=== PATIENT | female | born 1970 | race Asian ===

== ENCOUNTER 2018-11-25 14:16 | Inpatient (IN) | payer MEDICARE, MEDICAID ==
[~2018-11-25] VITALS: Ht 175.3 cm; Wt 61.0 kg
[2018-11-25] MEDS ORDERED: HALOPERIDOL 5 MG TABLET PO PRN (20:15)
[2018-11-25 20:23] VITALS: BP 126/83
[2018-11-25 21:10] VITALS: BP 123/78
[2018-11-25] MEDS: LORazepam 2 MG TABLET PO PRN (21:21)
[2018-11-25] MEDS ORDERED: NICOTINE 14 MG/24 HOUR PATCH TD PRN (22:00)
[2018-11-25] MEDS ORDERED: PETROLATUM,WHITE 71 GM JELLY TP PRN (22:00)
[2018-11-25] MEDS ORDERED: GuaiFENesin/D-METHORPHAN [SUGAR-FREE] 200-20MG/10 ML SYRUP UDCUP PO PRN (22:00)
[2018-11-25] MEDS ORDERED: DOCUSATE SODIUM 100 MG CAPSULE PO PRN (22:00)
[2018-11-25] MEDS ORDERED: ALBUTEROL SULFATE HFA 90 MCG/PUFF 8 GM INHALER IH PRN (22:00)
[2018-11-25] MEDS ORDERED: CloNIDine HCL 0.1 MG TABLET PO PRN (22:00)
[2018-11-25] MEDS ORDERED: LOPERAMIDE HCL 2 MG CAPSULE PO PRN (22:00)
[2018-11-25] MEDS ORDERED: MAG HYDROX/AL HYDROX/SIMETH ES 30 ML SUSPENSION UDCUP PO PRN (22:00)
[2018-11-25] MEDS ORDERED: ONDANSETRON HCL 4 MG TABLET PO PRN (22:00)
[2018-11-25] MEDS ORDERED: ACETAMINOPHEN 325 MG TABLET PO PRN (22:00)
[2018-11-26 00:58] VITALS: BP 109/64
[2018-11-26] MEDS: LORazepam 2 MG TABLET PO PRN ×3 (05:08→17:37)
[2018-11-26 05:12] VITALS: BP 119/72
[2018-11-26 09:28] VITALS: BP 110/67
[2018-11-26 16:00] VITALS: BP 111/61
[2018-11-26] MEDS ORDERED: MIRTAZAPINE 15 MG TABLET PO SCH (21:00)
[2018-11-27 05:48] VITALS: BP 108/65
[2018-11-27 08:08] VITALS: BP 101/61
[2018-11-27] MEDS: LORazepam 2 MG TABLET PO PRN ×3 (13:18→21:58)
[2018-11-27 16:04] VITALS: BP 106/73
[2018-11-27] MEDS ORDERED: MIRTAZAPINE 30 MG TABLET PO SCH (21:00)
[2018-11-28 05:08] VITALS: BP 110/70
[2018-11-28 09:37] VITALS: BP 111/62
[2018-11-28] MEDS: LORazepam 2 MG TABLET PO PRN ×2 (10:10→16:31)
[2018-11-28 16:00] VITALS: BP 108/66
[2018-11-28 16:31] VITALS: BP 122/74
[2018-11-28] MEDS: MIRTAZAPINE 15 MG TABLET PO SCH (20:33)
[2018-11-29 05:38] VITALS: BP 118/70
[2018-11-29 08:21] VITALS: BP 108/63
[2018-11-29] MEDS: LORazepam 2 MG TABLET PO PRN ×3 (09:05→21:11)
[2018-11-29 12:05] VITALS: BP 124/72
[2018-11-29] MEDS: HYDROCODONE/ACETAMINOPHEN 10-325 MG TABLET PO PRN ×2 (12:05→19:17)
[2018-11-29 16:05] VITALS: BP 118/77
[2018-11-29 19:17] VITALS: BP 118/69
[2018-11-29] MEDS: MAGNESIUM HYDROXIDE SUSPENSION 30 ML UDCUP PO PRN (20:05)
[2018-11-29] MEDS: MIRTAZAPINE 15 MG TABLET PO SCH (20:27)
[2018-11-30 04:58] VITALS: BP 114/65
[2018-11-30] MEDS: LORazepam 2 MG TABLET PO PRN ×4 (05:09→20:15)
[2018-11-30 08:13] VITALS: BP 122/65
[2018-11-30 12:09] VITALS: BP 110/60
[2018-11-30] MEDS: HYDROCODONE/ACETAMINOPHEN 10-325 MG TABLET PO PRN ×2 (12:09→18:37)
[2018-11-30 16:02] VITALS: BP 121/72
[2018-11-30 18:37] VITALS: BP 110/64
[2018-11-30] MEDS: MAGNESIUM HYDROXIDE SUSPENSION 30 ML UDCUP PO PRN (20:15)
[2018-11-30] MEDS: MIRTAZAPINE 15 MG TABLET PO SCH (21:59)
[2018-12-01 05:36] VITALS: BP 118/70
[2018-12-01 08:29] VITALS: BP 112/64
[2018-12-01 09:57] LABS: AMPHET/METH SCREEN,URINE NEGATIVE (NEGATIVE); BARBITURATE SCREEN, URINE NEGATIVE (NEGATIVE); BENZODIAZEPINES SCREEN,URINE NEGATIVE (NEGATIVE); CANNABINOID SCREEN,URINE NEGATIVE (NEGATIVE); COCAINE SCREEN,URINE NEGATIVE (NEGATIVE); METHADONE SCREEN, URINE NEGATIVE (NEGATIVE); OPIATE SCREEN,URINE NEGATIVE (NEGATIVE)
[2018-12-01 10:02] LABS: PHENCYCLIDINE SCREEN,URINE NEGATIVE (NEGATIVE)
[2018-12-01 10:05] LABS: APPEARANCE,URINE CLEAR (CLEAR); BILIRUBIN,URINE NEGATIVE (NEGATIVE); GLUCOSE, URINE (UA) NEGATIVE (NEGATIVE); KETONES,URINE NEGATIVE (NEGATIVE); NITRATE,URINE NEGATIVE (NEGATIVE); OCCULT BLOOD,URINE NEGATIVE (NEGATIVE); PROTEIN,URINE NEGATIVE (NEGATIVE); UROBILINOGEN,URINE 0.2 mg/dL (<=1.0)
[2018-12-01 10:29] LABS: LEUKOCYTE ESTERASE ,URINE NEGATIVE (NEGATIVE)
[2018-12-01] MEDS: LORazepam 2 MG TABLET PO PRN ×2 (11:59→19:36)
[2018-12-01 15:17] VITALS: BP 114/67
[2018-12-01] MEDS: IBUPROFEN 400 MG TABLET PO PRN (15:17)
[2018-12-01] MEDS: HYDROCODONE/ACETAMINOPHEN 10-325 MG TABLET PO PRN (21:02)
[2018-12-01] MEDS: MAGNESIUM HYDROXIDE SUSPENSION 30 ML UDCUP PO PRN (21:03)
[2018-12-01 21:05] VITALS: BP 113/79
[2018-12-01] MEDS: MIRTAZAPINE 15 MG TABLET PO SCH (21:56)
[2018-12-02 08:20] VITALS: BP 109/61
[2018-12-02 08:47] LABS: HEMOGLOBIN A1C 5.7 % (4.5-6.2)
[2018-12-02 09:18] LABS: ALANINE AMINOTRANSFERASE 25 U/L (12-78); ALBUMIN 3.3 g/dL (3.4-5.0); ALKALINE PHOSPHATASE 46 U/L (46-116); ANION GAP 7 mmol/L (8-16); ASPARTATE AMINOTRANSFERASE 19 U/L (15-37); BILIRUBIN,TOTAL 0.1 mg/dL (0.1-1.0); CALCIUM, TOTAL 8.2 mg/dL (8.8-10.5); CARBON DIOXIDE 28 mmol/L (22-29); CHLORIDE 105 mmol/L (98-107); CHOL/HDL RATIO 4.4 (3.9-5.7); CHOLESTEROL 169 mg/dL (131-200); CREATININE 0.74 mg/dL (0.60-1.30); FREE T4 (FREE THYROXINE) 0.93 ng/dL (0.76-1.46); GLOMERULAR FILTR. RATE CALC > 60 mL/min (>60); GLUCOSE,RANDOM 109 mg/dL (70-110); HCG,QUANTITATIVE < 1 mIU/mL (0-6); HDL CHOLESTEROL 38 mg/dL (40-60); LDL CHOL (CALC.) 104 mg/dL (0-130); POTASSIUM 3.9 mmol/L (3.5-5.1); SODIUM SERUM 140 mmol/L (136-145); THYROID STIMULATING HORMONE 2.07 uIU/mL (0.36-3.74); TOTAL PROTEIN, SERUM 5.9 g/dL (6.4-8.2); TRIGLYCERIDES 137 mg/dL (15-150); UREA NITROGEN, BLOOD 18 mg/dL (7-18)
[2018-12-02] MEDS: LORazepam 2 MG TABLET PO PRN ×3 (10:08→21:16)
[2018-12-02 10:09] VITALS: BP 112/66
[2018-12-02] MEDS: IBUPROFEN 400 MG TABLET PO PRN (10:09)
[2018-12-02 11:46] VITALS: BP 111/69
[2018-12-02] MEDS: HYDROCODONE/ACETAMINOPHEN 10-325 MG TABLET PO PRN ×2 (11:46→19:21)
[2018-12-02 16:22] VITALS: BP 117/69
[2018-12-02 19:43] VITALS: BP 115/69
[2018-12-02] MEDS: MAGNESIUM HYDROXIDE SUSPENSION 30 ML UDCUP PO PRN (20:14)
[2018-12-02] MEDS: MIRTAZAPINE 15 MG TABLET PO SCH (20:42)
[2018-12-03 00:15] VITALS: BP 130/76
[2018-12-03] MEDS: ZOLPIDEM TARTRATE 10 MG TABLET PO PRN (00:26)
[2018-12-03 08:35] VITALS: BP 118/69
[2018-12-03] MEDS: LORazepam 2 MG TABLET PO PRN ×2 (08:35→19:07)
[2018-12-03] MEDS: IBUPROFEN 400 MG TABLET PO PRN ×2 (08:35→19:07)
[2018-12-03 12:01] VITALS: BP 116/67
[2018-12-03] MEDS: HYDROCODONE/ACETAMINOPHEN 10-325 MG TABLET PO PRN (12:01)
[2018-12-03 16:21] VITALS: BP 134/67
[2018-12-03 19:07] VITALS: BP 114/67
[2018-12-03] MEDS: MIRTAZAPINE 15 MG TABLET PO SCH (20:31)
[2018-12-04 05:05] VITALS: BP 117/73
[2018-12-04 08:19] VITALS: BP 128/75
[2018-12-04 10:20] VITALS: BP 116/76
[2018-12-04] MEDS: IBUPROFEN 400 MG TABLET PO PRN (10:20)
[2018-12-04] MEDS: LORazepam 2 MG TABLET PO PRN ×3 (10:20→22:45)
[2018-12-04 12:09] VITALS: BP 122/68
[2018-12-04] MEDS: HYDROCODONE/ACETAMINOPHEN 10-325 MG TABLET PO PRN ×2 (12:09→20:30)
[2018-12-04 16:06] VITALS: BP 117/65
[2018-12-04] MEDS: MIRTAZAPINE 15 MG TABLET PO SCH (20:26)
[2018-12-04 20:30] VITALS: BP 114/62
[2018-12-05] VITALS: BP 124/70
[2018-12-05] MEDS: ZOLPIDEM TARTRATE 10 MG TABLET PO PRN (00:36)
[2018-12-05] MEDS: LORazepam 2 MG TABLET PO PRN ×2 (10:40→22:01)
[2018-12-05] MEDS: MAGNESIUM HYDROXIDE SUSPENSION 30 ML UDCUP PO PRN ×2 (10:42→21:02)
[2018-12-05 14:58] VITALS: BP 116/70
[2018-12-05] MEDS: HYDROCODONE/ACETAMINOPHEN 10-325 MG TABLET PO PRN (14:58)
[2018-12-05 16:31] VITALS: BP 111/65
[2018-12-05] MEDS: MIRTAZAPINE 15 MG TABLET PO SCH (21:02)
[2018-12-06 05:26] VITALS: BP 109/68
[2018-12-06 08:36] VITALS: BP 100/64
[2018-12-06] MEDS: LORazepam 2 MG TABLET PO PRN ×3 (11:22→23:08)
[2018-12-06] MEDS: IBUPROFEN 400 MG TABLET PO PRN (11:23)
[2018-12-06] MEDS: HYDROCODONE/ACETAMINOPHEN 10-325 MG TABLET PO PRN (14:55)
[2018-12-06 16:32] VITALS: BP 109/75
[2018-12-06] MEDS: MIRTAZAPINE 15 MG TABLET PO SCH (20:42)
[2018-12-06] MEDS: ZOLPIDEM TARTRATE 10 MG TABLET PO PRN (21:53)
[2018-12-07] VITALS (7 sets, daily range): BP systolic 108–126; BP diastolic 68–88
[2018-12-07] MEDS: LORazepam 2 MG TABLET PO PRN ×2 (10:58→17:42)
[2018-12-07] MEDS: MAGNESIUM HYDROXIDE SUSPENSION 30 ML UDCUP PO PRN (12:19)
[2018-12-07] MEDS: NICOTINE POLACRILEX 2 MG LOZENGE PO PRN (12:20)
[2018-12-07] MEDS: HYDROCODONE/ACETAMINOPHEN 10-325 MG TABLET PO PRN ×2 (12:20→21:45)
[2018-12-07] MEDS: IBUPROFEN 400 MG TABLET PO PRN (19:29)
[2018-12-07] MEDS: MIRTAZAPINE 15 MG TABLET PO SCH (20:11)
[2018-12-08 00:03] VITALS: BP 126/73
[2018-12-08] MEDS: LORazepam 2 MG TABLET PO PRN (00:03)
[2018-12-08] MEDS: ZOLPIDEM TARTRATE 10 MG TABLET PO PRN ×2 (00:45→21:37)
[2018-12-08 08:35] VITALS: BP 101/62
[2018-12-08 10:01] VITALS: BP 112/66
[2018-12-08] MEDS: IBUPROFEN 400 MG TABLET PO PRN ×2 (10:01→18:01)
[2018-12-08] MEDS: NICOTINE POLACRILEX 2 MG LOZENGE PO PRN (10:02)
[2018-12-08 13:24] VITALS: BP 112/61
[2018-12-08] MEDS: HYDROCODONE/ACETAMINOPHEN 10-325 MG TABLET PO PRN (13:24)
[2018-12-08 16:22] VITALS: BP 122/60
[2018-12-08 18:01] VITALS: BP 125/73
[2018-12-08] MEDS: MIRTAZAPINE 15 MG TABLET PO SCH (20:32)
[2018-12-09 03:26] VITALS: BP 119/70
[2018-12-09] MEDS: LORazepam 2 MG TABLET PO PRN (03:26)
[2018-12-09 08:03] VITALS: BP 100/53
[2018-12-09 11:15] VITALS: BP 116/67
[2018-12-09] MEDS: IBUPROFEN 400 MG TABLET PO PRN (11:15)
[2018-12-09] MEDS: NICOTINE POLACRILEX 2 MG LOZENGE PO PRN ×2 (13:46→22:04)
[2018-12-09 14:43] VITALS: BP 118/75
[2018-12-09] MEDS: HYDROCODONE/ACETAMINOPHEN 10-325 MG TABLET PO PRN (14:43)
[2018-12-09 16:18] VITALS: BP 129/70
[2018-12-09] MEDS: MIRTAZAPINE 15 MG TABLET PO SCH (20:02)
[2018-12-09] MEDS: ZOLPIDEM TARTRATE 10 MG TABLET PO PRN (21:04)
[2018-12-09] MEDS: MAGNESIUM HYDROXIDE SUSPENSION 30 ML UDCUP PO PRN (22:14)
[2018-12-10 01:55] VITALS: BP 111/63
[2018-12-10 05:00] VITALS: BP 116/74
[2018-12-10] MEDS: LORazepam 2 MG TABLET PO PRN (05:04)
[2018-12-10 08:20] VITALS: BP 94/55
[2018-12-10 10:46] VITALS: BP 114/73
[2018-12-10] MEDS: HYDROCODONE/ACETAMINOPHEN 10-325 MG TABLET PO PRN ×2 (10:46→19:07)
[2018-12-10] MEDS: NICOTINE POLACRILEX 2 MG LOZENGE PO PRN ×2 (10:46→19:07)
[2018-12-10 16:09] VITALS: BP 119/73
[2018-12-10 19:08] VITALS: BP 123/79
[2018-12-10] MEDS: MIRTAZAPINE 15 MG TABLET PO SCH (20:34)
[2018-12-10] MEDS: ZOLPIDEM TARTRATE 10 MG TABLET PO PRN (22:06)
[2018-12-11 04:20] VITALS: BP 125/78
[2018-12-11] MEDS: LORazepam 2 MG TABLET PO PRN (04:28)
[2018-12-11] MEDS: HYDROCODONE/ACETAMINOPHEN 10-325 MG TABLET PO PRN ×3 (05:24→21:46)
[2018-12-11 05:30] VITALS: BP 125/78
[2018-12-11 08:46] VITALS: BP 107/64
[2018-12-11] MEDS: NICOTINE POLACRILEX 2 MG LOZENGE PO PRN (13:55)
[2018-12-11 14:42] VITALS: BP 121/77
[2018-12-11 16:04] VITALS: BP 131/74
[2018-12-11] MEDS: MAGNESIUM HYDROXIDE SUSPENSION 30 ML UDCUP PO PRN (19:05)
[2018-12-11] MEDS: MIRTAZAPINE 15 MG TABLET PO SCH (20:31)
[2018-12-11] MEDS: ZOLPIDEM TARTRATE 10 MG TABLET PO PRN (20:59)
[2018-12-11 21:47] VITALS: BP 120/76
[2018-12-12 03:10] VITALS: BP 118/62
[2018-12-12] MEDS: LORazepam 2 MG TABLET PO PRN (03:15)
[2018-12-12 08:32] VITALS: BP 101/60
[2018-12-12] MEDS: HYDROCODONE/ACETAMINOPHEN 10-325 MG TABLET PO PRN ×2 (11:40→20:32)
[2018-12-12] MEDS: NICOTINE POLACRILEX 2 MG LOZENGE PO PRN ×2 (11:40→20:32)
[2018-12-12 13:15] VITALS: BP 112/65
[2018-12-12 19:37] VITALS: BP 115/72
[2018-12-12] MEDS ORDERED: MIRT15 PO (20:11)
[2018-12-12 20:30] VITALS: BP 129/75
[2018-12-12] MEDS: MIRTAZAPINE 15 MG TABLET PO SCH (20:32)
[2018-12-12] MEDS: ZOLPIDEM TARTRATE 10 MG TABLET PO PRN (20:32)
[2018-12-12] MEDS: MAGNESIUM HYDROXIDE SUSPENSION 30 ML UDCUP PO PRN (21:06)
[2018-12-12 21:32] VITALS: BP 120/74
[2018-12-13 01:08] VITALS: BP 104/65
[2018-12-13 04:30] VITALS: BP 119/79
[2018-12-13] MEDS: NICOTINE POLACRILEX 2 MG LOZENGE PO PRN (04:43)
[2018-12-13] MEDS: HYDROCODONE/ACETAMINOPHEN 10-325 MG TABLET PO PRN (04:43)
== END 2018-12-13 07:12 | disposition home or self-care (01) | DRG 885 ==
LOC: B2X 20:10
PROVIDERS: ADMIT Psychiatry & Neurology Psychiatry; ATTEND Psychiatry & Neurology Psychiatry
DX: F33.2 Major depressive disorder, recurrent severe without psychotic features (principal); R45.851 Suicidal ideations; F29 Unspecified psychosis not due to a substance or known physiological condition; F19.10 Other psychoactive substance abuse, uncomplicated; F41.9 Anxiety disorder, unspecified; G47.00 Insomnia, unspecified; K21.9 Gastro-esophageal reflux disease without esophagitis; Z87.891 Personal history of nicotine dependence; Z91.5 Personal history of self-harm; Z71.51 Drug abuse counseling and surveillance of drug abuser
CPT/HCPCS: 80307; 83036; 84439; 84443